=== PATIENT | female | born 1995 | race Caucasian/White ===

== ENCOUNTER 2017-04-18 17:36 | Emergency (ER) | payer OTHER ==
[~2017-04-18] VITALS: Ht 170.2 cm; Wt 55.0 kg
[2017-04-18 17:37] VITALS: BP 105/64; PULSE 100; RESP 20; TEMP 99.2; O2SAT 99
[2017-04-18] MEDS ORDERED: AMOX875T PO (18:47)
--- NOTE | 2017-04-18 18:47 | PD ---
HPI Chief Complaint: Cold / Flu Symptoms Time Seen by Provider: 18:34 Travel History International Travel<30 days: No Contact w/Intl Traveler<30days: No Traveled to known affect area: No History of Present Illness HPI 21-year-old female presents to the emergency Department with 4-5 days of upper respiratory symptoms including headache, congestion, sore throat, postnasal drip, cough, and chest congestion. Patient is a smoker was trying to quit as she is approximately 10 weeks . Patient states the postnasal drip is worse when she lays down at night. She denies chest pain or wheezing. She denies shortness of breath. She has had a fever of up to 100. She denies nausea, vomiting, or abdominal pain. She has no urinary or vaginal symptoms. She has no known drug allergies. Patient is to follow-up with her OB on 03 May. This is her first . [facility] Past Medical History ?: LMP: 02/2017 Social History Alcohol Use: No Tobacco Use: Yes Substance Use: No Allergies-Medications (Allergen,Severity, Reaction): Coded Allergies: No Known Allergies (Unverified , 04/18/17) Review of Systems Except as stated in HPI: all other systems reviewed are Neg General / Constitutional: Positive: Fever, Chills Eyes: No: Visual changes HENT: Positive: Headaches, Sore Throat, Rhinitis, Rhinorrhea, Congestion, No: Vertigo, Lightheadedness, Nosebleed, Neck Stiffness, Neck Pain, Ear Discharge, Earache Cardiovascular: No: Chest Pain or Discomfort Respiratory: Positive: Cough, No: Shortness of Breath, Wheezing, Sneezing Gastrointestinal: No: Nausea, Vomiting, Diarrhea, Abdominal Pain Genitourinary: No: Dysuria Musculoskeletal: No: Pain Skin: No Rash Neurologic: No: Weakness Psychiatric: No: Depression Endocrine: No: Polydipsia Hematologic/Lymphatic: No: Easy Bruising Physical Exam Narrative GENERAL: Patient appears ill but not septic. SKIN: Warm and dry. Normal color. Normal turgor. HEAD: Atraumatic. Normocephalic. Mild bilateral maxillary sinus tenderness with palpation. EYES: Pupils equal and round. No scleral icterus. No injection or drainage. ENT: No nasal bleeding or discharge. Mucous membranes pink and moist. TMs are clear bilaterally. Patient has swollen turbinates and purulent nasal discharge bilaterally. Pharynx is somewhat cobblestoned and erythematous with mild swelling and postnasal drip present. Tonsils are not significant without exudate. Uvula is midline. NECK: Trachea midline. Supple nontender without significant lymphadenopathy. CARDIOVASCULAR: Regular rate and rhythm. RESPIRATORY: No accessory muscle use. Coarse breath sounds to auscultation. Breath sounds equal bilaterally. No wheezes, rales, or rhonchi. GASTROINTESTINAL: Abdomen soft, non-tender, nondistended. Hepatic and splenic margins not palpable. MUSCULOSKELETAL: Extremities without clubbing, cyanosis, or edema. No obvious deformities. NEUROLOGICAL: Awake and alert. No obvious cranial nerve deficits. Motor grossly within normal limits. Five out of 5 muscle strength in the arms and legs. Normal speech. PSYCHIATRIC: Appropriate mood and affect; insight and judgment normal. Data Data Last Documented VS Vital Signs Date Time Temp Pulse Resp B/P Pulse Ox O2 Delivery O2 Flow Rate FiO2 04/18/17 17:37 99.2 100 20 105/64 99 Room Air MDM Medical Decision Making Medical Screen Exam Complete: Yes Emergency Medical Condition: Yes Differential Diagnosis Upper respiratory infection. Sinusitis. Postnasal drip. Bronchitis. Narrative Course Patient is treated with amoxicillin 875 twice a day 10 days. Patient can use plain Robitussin [id number] as discussed. Patient use saline nasal spray promote sinus irrigation. Patient use Tylenol for fever and aches and pains as needed. Patient follow with her primary care physician or return to emergency department as needed. Diagnosis Primary Impression: Sinusitis, acute maxillary Qualified Code: J01.00 - Acute non-recurrent maxillary sinusitis Referrals: [facility] Patient Instructions: General Instructions, Sinusitis (ED) Additional Instructions: Patient is treated with amoxicillin 875 twice a day 10 days. Patient can use plain Robitussin [id number] as discussed. Patient use saline nasal spray promote sinus irrigation. Patient use Tylenol for fever and aches and pains as needed. Patient follow with her primary care physician or return to emergency department as needed. Disposition: 01 DISCHARGE HOME Condition: Stable Shai Armijo Apr 18, 2017 18:47
[2017-05-03] MEDS ORDERED: PREN1CAP7 PO (15:44)
== END 2017-04-18 19:00 | disposition home or self-care (01) ==
LOC: NEPK 17:36
DX: J01.00 Acute maxillary sinusitis, unspecified (principal); Z72.0 Tobacco use
CPT/HCPCS: 99283

== ENCOUNTER → 2017-08-01 | Outpatient (CLI) | payer OTHER ==
[~2017-08-01] MED LIST: PREN1CAP7 PO; SULF1TAB23 PO
== END ==
LOC: HPND 12:55
PROVIDERS: ATTEND Obstetrics & Gynecology
DX: O43.892 Other placental disorders, second trimester (principal); Z36.2 Encounter for other antenatal screening follow-up
CPT/HCPCS: 76811

== ENCOUNTER 2017-08-20 12:04 | Emergency (ER) | payer OTHER ==
[~2017-08-20] VITALS: Ht 170.2 cm; Wt 59.0 kg
--- NOTE | 2017-08-20 13:27 | PD ---
HPI Chief Complaint Decreased movement Date Seen: Aug 20, 2017 Time Seen: 13:22 Travel History International Travel<30 Days: No Contact w/Intl Traveler<30Days: No Known Affected Area: No History of Present Illness HPI Patient is 22-year-old white female at 26-27 weeks who [facility] presents complaining of decreased movement at home. She try to drink some suite liquids and the waffles with sugar in the didn't help the baby move so she came in. Here on OB ED the baby is a reactive strip for 26 weeks no contractions noted, the patient says she's felt the baby move more since she's been here that when she was at home. Denies pain bleeding or leakage of fluid. Weeks Gestation: 26 Para: 0 : 1 History Social History Alcohol Use: No Tobacco Use: No Substance Abuse: No Allergies-Medications (Allergen,Severity, Reaction): Coded Allergies: No Known Allergies (Unverified Allergy, Unknown, 08/18/17) Home Meds Active Scripts Sulfamethoxazole-Trimethoprim (Sulfamethoxazole-Trimethoprim) 800-160 Mg Tab, 1 TAB PO BID for Infection for 7 Days, #14 TAB 0 Refills Prov:Rekha Spear CNM [facility] 07/25/17 W/O Vit A W/ Fe Fumar (Citranatal [place]) 27-1-260 Mg Cap, 1 CAP PO DAILY for Nutritional Supplement, #30 CAP 11 Refills Prov:Rekha Spear CNM [facility] 05/03/17 Review of Systems General / Constitutional: No: Fever, Weight Gain, Chills, Other Eyes: No: Diploplia, Blurred Vision, Visual changes, Pain, Photophobia HENT: No: Headaches, Vertigo, Lightheadedness Cardiovascular: No: Irregular Rhythm, Chest Pain or Discomfort, Palpitations, Tachycardia, Syncope, Varicosities, Edema, Cyanosis Respiratory: No: Cough, Short of Breath, Other Gastrointestinal: No: Nausea, Vomiting, Diarrhea Genitourinary: No: Decreased Urinary Output, Oliguria Musculoskeletal: No: Limited ROM, Weakness, Cramping, Edema, Pain Skin: No Rash, No Itching, No Dryness, No Lumps, No Change in Pigmentation, No Change in Nails, No Alopecia, No Lesions Neurologic: No: Weakness, Dizziness, Syncope, Focal Abnormalities, Coordination Problem, Headache, Slurred Speech, Seizures Psychiatric: No: Depression, Suicidal Ideations, Homicidal Ideation Endocrine: No: Heat Intolerance, Cold Intolerance, Polydipsia, Polyuria, Other Physical Exam Narrative GENERAL: Well-nourished, well-developed patient. SKIN: Warm and dry. HEAD: Normocephalic and atraumatic. EYES: No scleral icterus. No injection or drainage. ENT: No nasal drainage noted. Mucous membranes pink. Airway patent. NECK: Supple, trachea midline. No JVD. CARDIOVASCULAR: Regular rate and rhythm without murmurs, gallops, or rubs. RESPIRATORY: Breath sounds equal bilaterally. No accessory muscle use. BREASTS: Bilateral exam showed no masses , no retractions, no nipple discharge. ABDOMEN/GI: Abdomen soft, non-tender, bowel sounds present, no rebound, no guarding Gravid to [26-] weeks size Fundal Height: [26-] GENITOURINARY: Membranes: [intact ] Uterine Contractions: [none-] FHT's: Category: [1-] Baseline: [-140] Reactive: [-yes for 26 wks] Variability: [mod-] Decels: [-0] EXTREMITIES: No cyanosis or edema. BACK: Nontender without obvious deformity. No CVA tenderness. NEUROLOGICAL: Awake and alert. Motor and sensory grossly within normal limits. Five out of 5 muscle strength in all muscle groups. Normal speech. MDM Interpretation(s) Patient is 22-year-old white female at 26 weeks who presents with decreased movement today. He on OB ED the baby is a reactive heart rate tracing for 26 weeks with good variability. The patient was monitored for over an hour and baby looked good the entire time. She has no contractions. Plan Plan to discharge patient home to observe movement kick counts there. She is to follow-up with her OB provider on Monday which be 48 hours from now Diagnosis Diagnosis: Primary Impression: Decreased movement during in second trimester, antepartum Additional Impression: 26 weeks gestation of Disposition: DISCHARGE HOME Condition: Stable Josr Amado II, MD Aug 20, 2017 13:27
== END 2017-08-20 13:45 | disposition home or self-care (01) ==
LOC: HOBED 12:04
DX: O36.8120 Decreased fetal movements, second trimester, not applicable or unspecified (principal); Z3A.26 26 weeks gestation of pregnancy
CPT/HCPCS: 99284

== ENCOUNTER 2017-09-07 20:06 | Emergency (ER) | payer OTHER ==
[~2017-09-07 20:06] MED LIST changes: -SULF1TAB23 PO
--- NOTE | 2017-09-07 21:24 | PD ---
HPI Chief Complaint Patient noted blood in the toilet when she wiped today, also having right-sided low back pain and flank pain that radiates around to the front Date Seen: Sep 07, 2017 Time Seen: 21:10 Travel History International Travel<30 Days: No Contact w/Intl Traveler<30Days: No Known Affected Area: No History of Present Illness HPI Patient is 22-year-old white female at 29-30 weeks [facility] And presents complaining of possible vaginal bleeding she noticed blood in the toilet when she was at work and wiped. Also developing right-sided low back pain that radiates around to the front. The patient was in [place] for the holidays and had bleeding out there went to the emergency room in OB area there within ultrasound that she says ruled out a previa and they could not find why she was bleeding at that time she did not have the pain that she's having now, she states that she had no more bleeding other than what she saw on the toilet no more blood was seen, none is present now to heart rate tracing is reactive and no contractions same Weeks Gestation: 29 Para: 0 : 1 History Obstetric History Obstetric History First and as mentioned before she was seen in [place] for vaginal bleeding and had ultrasound as a rule out placenta previa but no abnormalities found and they thought it might a been a urinary tract issue Social History Alcohol Use: No Tobacco Use: No Substance Abuse: No Allergies-Medications (Allergen,Severity, Reaction): Coded Allergies: No Known Allergies (Unverified Allergy, Unknown, 08/22/17) Home Meds Active Scripts W/O Vit A W/ Fe Fumar (Citranatal [place]) 27-1-260 Mg Cap, 1 CAP PO DAILY for Nutritional Supplement, #30 CAP 11 Refills Prov:Rekha Spear CNM [facility] 05/03/17 Review of Systems General / Constitutional: No: Fever, Weight Gain, Chills, Other Eyes: No: Diploplia, Blurred Vision, Visual changes, Pain, Photophobia HENT: No: Headaches, Vertigo, Lightheadedness Cardiovascular: No: Irregular Rhythm, Chest Pain or Discomfort, Palpitations, Tachycardia, Syncope, Varicosities, Edema, Cyanosis Respiratory: No: Cough, Short of Breath, Other Gastrointestinal: No: Nausea, Vomiting, Diarrhea Genitourinary: Pelvic Pain, Vaginal Bleeding, No: Decreased Urinary Output, Oliguria Musculoskeletal: No: Limited ROM, Weakness, Cramping, Edema, Pain Skin: No Rash, No Itching, No Dryness, No Lumps, No Change in Pigmentation, No Change in Nails, No Alopecia, No Lesions Neurologic: No: Weakness, Dizziness, Syncope, Focal Abnormalities, Coordination Problem, Headache, Slurred Speech, Seizures Psychiatric: No: Depression, Suicidal Ideations, Homicidal Ideation Endocrine: No: Heat Intolerance, Cold Intolerance, Polydipsia, Polyuria, Other Physical Exam Narrative GENERAL: Well-nourished, well-developed patient. SKIN: Warm and dry. HEAD: Normocephalic and atraumatic. EYES: No scleral icterus. No injection or drainage. ENT: No nasal drainage noted. Mucous membranes pink. Airway patent. NECK: Supple, trachea midline. No JVD. CARDIOVASCULAR: Regular rate and rhythm without murmurs, gallops, or rubs. RESPIRATORY: Breath sounds equal bilaterally. No accessory muscle use. BREASTS: Bilateral exam showed no masses , no retractions, no nipple discharge. ABDOMEN/GI: Abdomen soft, non-tender, bowel sounds present, no rebound, no guarding Gravid to [-29] weeks size Fundal Height: [29-] GENITOURINARY: External Genitalia: intact and normal in appearance Speculum exam done--no blood in the vagina to some white discharge present cervix appears normal does not appear infected's fairly large cervical diameter however cervix is closed palpation and visualization no blood and no bleeding source seen Cervix: [Closed-] Dilatation: [-Closed] Effacement: [-] Thick Station: [-3] Membranes: [intact ] Uterine Contractions: [none-] FHT's: Category: [-1] Baseline: [-133] Reactive: [R-] Variability: [-mod] Decels: [none-] EXTREMITIES: No cyanosis or edema. BACK: Nontender without obvious deformity. Mild right-sided CVA tenderness. none on Left NEUROLOGICAL: Awake and alert. Motor and sensory grossly within normal limits. Five out of 5 muscle strength in all muscle groups. Normal speech. Data Data Labs Urine dip on OB ED shows moderate blood no infection MDM Interpretation(s) 22-year-old white female at 29-30 weeks presents with seeing blood in the toilet this evening having right low back pain that radiates around to front. heart rate tracing is reactive and she's not maile, cervix was visualized with speculum there is no blood in the vagina no source of bleeding there cervix appears closed normal and noninfective and there is even white discharge there that he would not see if the patient been bleeding significantly. The urine dipstick was showed moderate blood with symptoms of right flank pain radiating around to front and blood in the urine is quite likely is a small kidney stone trying to pass Plan Plan for patient to be at home of drinking a lot of fluids and water to try and the flush the stone, possible to help hydration, she is to use Tylenol liberally , heating pad or hot bath for symptom relief. And she is to return for worsening symptoms or fever. Also be at bedrest as much as possible over this weekend and the given a work note for 3 days. Diagnosis Diagnosis: Primary Impression: Renal stone Additional Impression: Spotting affecting in third trimester Disposition: 01 DISCHARGE HOME Condition: Stable Josr Amado II, MD Sep 07, 2017 21:24
[2017-09-07 22:22] LABS: AMORPHOUS SEDIMENT, URINE RARE; BACTERIA, URINE RARE /hpf; BILIRUBIN, URINE NEG (NEG); BLOOD, URINE SMALL (NEG); GLUCOSE,URINE NEG (NEG); KETONE, URINE NEG (NEG); MUCUS URINE FEW /lpf (OCC); NITRITE,URINE NEG (NEG); SQUAMOUS EPITHELIAL CELL URINE 10 /hpf (0-5); TRANSITIONAL EPI CELLS, URINE 1 /hpf; URINE COLOR YELLOW (YELLW/STRAW); URINE LEUKOCYTE ESTERASE LARGE (NEG)
== END 2017-09-07 21:26 | disposition home or self-care (01) ==
LOC: HOBED 20:06
DX: O26.853 Spotting complicating pregnancy, third trimester (principal); N20.0 Calculus of kidney; Z3A.29 29 weeks gestation of pregnancy
CPT/HCPCS: 59025; 81001

== ENCOUNTER 2017-10-26 17:05 | Emergency (ER) | payer OTHER ==
--- NOTE | 2017-10-26 18:09 | PD ---
HPI Chief Complaint Patient describes a trickle of fluid per vagina today, no large gush or stream of fluid. Date Seen: Oct 26, 2017 Time Seen: 18:00 Travel History International Travel<30 Days: No Contact w/Intl Traveler<30Days: No Known Affected Area: No History of Present Illness HPI 22-year-old white female at 36 weeks [facility] and complains today of a trickle of fluid per vagina just keeps on coming out no large streamer gush of fluid. No bleeding. No other complaints of pain. heart tones are reactive and that she is maile irregularly. Her amnisure is negative Weeks Gestation: 36 Para: 0 : 1 History Social History Alcohol Use: No Tobacco Use: No Substance Abuse: No Allergies-Medications (Allergen,Severity, Reaction): Coded Allergies: No Known Allergies (Unverified Allergy, Unknown, 10/02/17) Home Meds Active Scripts W/O Vit A W/ Fe Fumar (Citranatal [place]) 27-1-260 Mg Cap, 1 CAP PO DAILY for Nutritional Supplement, #30 CAP 11 Refills Prov:Rekha Spear CNM [facility] 05/03/17 Review of Systems General / Constitutional: No: Fever, Weight Gain, Chills, Other Eyes: No: Diploplia, Blurred Vision, Visual changes, Pain, Photophobia HENT: No: Headaches, Vertigo, Lightheadedness Cardiovascular: No: Irregular Rhythm, Chest Pain or Discomfort, Palpitations, Tachycardia, Syncope, Varicosities, Edema, Cyanosis Respiratory: No: Cough, Short of Breath, Other Gastrointestinal: No: Nausea, Vomiting, Diarrhea Genitourinary: No: Decreased Urinary Output, Oliguria Musculoskeletal: No: Limited ROM, Weakness, Cramping, Edema, Pain Skin: No Rash, No Itching, No Dryness, No Lumps, No Change in Pigmentation, No Change in Nails, No Alopecia, No Lesions Neurologic: No: Weakness, Dizziness, Syncope, Focal Abnormalities, Coordination Problem, Headache, Slurred Speech, Seizures Psychiatric: No: Depression, Suicidal Ideations, Homicidal Ideation Endocrine: No: Heat Intolerance, Cold Intolerance, Polydipsia, Polyuria, Other Physical Exam Narrative GENERAL: Well-nourished, well-developed patient. SKIN: Warm and dry. HEAD: Normocephalic and atraumatic. EYES: No scleral icterus. No injection or drainage. ENT: No nasal drainage noted. Mucous membranes pink. Airway patent. NECK: Supple, trachea midline. No JVD. CARDIOVASCULAR: Regular rate and rhythm without murmurs, gallops, or rubs. RESPIRATORY: Breath sounds equal bilaterally. No accessory muscle use. BREASTS: Bilateral exam showed no masses , no retractions, no nipple discharge. ABDOMEN/GI: Abdomen soft, non-tender, bowel sounds present, no rebound, no guarding Gravid to [-36] weeks size Fundal Height: [36-] GENITOURINARY: External Genitalia: intact and normal in appearance BUS glands: [-] Cervix: [-post] Dilatation: [-0] Effacement: [-thick] Station: [-3] Presentation: [vtx-] Membranes: [intact amnisure neg] Uterine Contractions: [q 3 min-] FHT's: Category: [1-] Baseline: [133-] Reactive: [-R] Variability: [mod-] Decels: [-none] EXTREMITIES: No cyanosis or edema. BACK: Nontender without obvious deformity. No CVA tenderness. NEUROLOGICAL: Awake and alert. Motor and sensory grossly within normal limits. Five out of 5 muscle strength in all muscle groups. Normal speech. Data Data Labs amnisure negative MDM Interpretation(s) Patient is a 22-year-old white female G one P0 at 36 weeks who presents with possibly leaking of fluid that she describes it as a "trickle", denies bleeding , pain. She is maile irregularly cervix is closed long and high. heart tones are reactive. amnisure is negative Plan Plan discharge the patient home to observation return for increasing leaking bleeding or pain. Diagnosis Diagnosis: Primary Impression: No leakage of amniotic fluid into vagina Additional Impression: 36 weeks gestation of Disposition: DISCHARGE HOME Condition: Stable Josr Amado II, MD Oct 26, 2017 18:09
== END 2017-10-26 18:31 | disposition home or self-care (01) ==
LOC: HOBED 17:05
DX: O26.893 Other specified pregnancy related conditions, third trimester (principal); Z3A.36 36 weeks gestation of pregnancy
CPT/HCPCS: 59025; 84112

== ENCOUNTER 2017-11-02 08:20 | Emergency (ER) | payer OTHER ==
--- NOTE | 2017-11-02 09:10 | PD ---
HPI Travel History International Travel<30 Days: No Contact w/Intl Traveler<30Days: No Known Affected Area: No History of Present Illness HPI Patient is a 22-year-old at 37/3 presents today for contractions. Patient states earlier in the day she felt a cramping sensation in her lower abdomen. The time between cramps was approximately 1-3 minutes, has been increasing in strength. States she has only had white normal discharge recently. Denies large gushes of fluid, malodorous or different color discharges , bloody discharge. Denies dysuria, hematuria, acute frequency, change in color or smell. No nausea, vomiting, fevers, chills. Denies headache, changes in vision, chest pain, shortness of breath. Reports fetus is moving normally. No other complaints today. Weeks Gestation: 37 Para: 0 : 1 Miscarriage: 0 : 0 History Past Medical History Medical History: Denies Significant Hx Past Surgical History Surgical History: No Previous Surgery Family History Family History: Negative Social History Alcohol Use: No Tobacco Use: Yes (09/07 PPD for entire ) Substance Abuse: No Allergies-Medications (Allergen,Severity, Reaction): Coded Allergies: No Known Allergies (Unverified Allergy, Unknown, 11/02/17) Home Meds Active Scripts W/O Vit A W/ Fe Fumar (Citranatal [place]) 27-1-260 Mg Cap, 1 CAP PO DAILY for Nutritional Supplement, #30 CAP 11 Refills Prov:Rekha Spear CNM [facility] 05/03/17 Review of Systems General / Constitutional: No: Fever, Chills Eyes: No: Diploplia, Blurred Vision, Visual changes, Pain HENT: No: Headaches, Vertigo Cardiovascular: No: Chest Pain or Discomfort Respiratory: No: Cough, Short of Breath, Wheezing Gastrointestinal: No: Nausea, Vomiting, Diarrhea, Hematemesis, Hematochezia, Constipation Genitourinary: No: Urgency, Frequency, Dysuria, Hematuria Musculoskeletal: No: Limited ROM, Weakness Skin: No Rash, No Itching, No Dryness Neurologic: No: Weakness, Dizziness Psychiatric: No: Anxiety, Mood Disorder Endocrine: No: Polydipsia, Polyuria Hematologic/Lymphatic: No Easy Bruising, No Lymph Node Enlargement Physical Exam Narrative GENERAL: Well-nourished, well-developed patient. SKIN: Warm and dry. HEAD: Normocephalic and atraumatic. EYES: No scleral icterus. No injection or drainage. ENT: No nasal drainage noted. Mucous membranes pink. Airway patent. NECK: Supple, trachea midline. No JVD. CARDIOVASCULAR: Regular rate and rhythm without murmurs, gallops, or rubs. RESPIRATORY: Breath sounds equal bilaterally. No accessory muscle use. ABDOMEN/GI: Abdomen soft, non-tender, bowel sounds present, no rebound, no guarding GENITOURINARY: External Genitalia: intact and normal in appearance Cervix: anterior Dilatation: 1 Effacement: 80 Station: -2 Presentation: vertex Membranes: intact Uterine Contractions: 3-5 minutes FHT's: Category: 2 Baseline: 145 Reactive: yes Variability: moderate Decels: variable EXTREMITIES: No cyanosis or edema. BACK: Nontender without obvious deformity. No CVA tenderness. NEUROLOGICAL: Awake and alert. Motor and sensory grossly within normal limits. Five out of 5 muscle strength in all muscle groups. Normal speech. Data Data Vital Signs Reviewed: Yes MDM Plan Patient is a 22-year-old at 37/3 presented today for contractions. Denied discharge of fluid. No dilation of cervix, observed over one hour. No other complaints. -FHT category 2, corrected to category 1, reassuring -Continue po hydration -Educated on signs/symptoms of , will return if present d/w Dr. Javed Diagnosis Diagnosis: Primary Impression: Uterine contractions during Additional Impression: 37 weeks gestation of Disposition: 01 DISCHARGE HOME Patient Instructions: General Instructions, Early Labor Signs (ED) Barber Villegas MD R1 Nov 02, 2017 09:10
== END 2017-11-02 11:06 | disposition home or self-care (01) ==
LOC: HOBED 08:20
DX: O47.1 False labor at or after 37 completed weeks of gestation (principal); O99.333 Smoking (tobacco) complicating pregnancy, third trimester; F17.200 Nicotine dependence, unspecified, uncomplicated; Z3A.37 37 weeks gestation of pregnancy
CPT/HCPCS: 59025

== ENCOUNTER 2017-11-15 18:49 | Inpatient (IN) | payer OTHER ==
[~2017-11-15] VITALS: Ht 170.2 cm; Wt 67.0 kg
[2017-11-15] VITALS (9 sets, daily range): BP systolic 111–125; BP diastolic 63–74; PULSE 76–93; RESP 16–18; TEMP 98.1–98.3
[2017-11-15] MEDS ORDERED: LACTATED RINGER'S 1000 ML INJ 1,000 ML IV PRN (19:46)
--- NOTE | 2017-11-15 19:50 | HHI.HP ---
HPI Chief Complaint Complains of her water breaking and labor pain Date Seen: Nov 15, 2017 Time Seen: 19:47 Travel History International Travel<30 Days: No Contact w/Intl Traveler<30Days: No Known Affected Area: No History of Present Illness HPI Patient is 22-year-old white female at 39 weeks [facility] presents complaining of water breaking. She has a positive amnisure, reactive heart rate tracing, maile every 3 minutes Weeks Gestation: 39 Para: 0 : 1 History Social History Alcohol Use: No Tobacco Use: No Substance Abuse: No Allergies-Medications (Allergen,Severity, Reaction): Coded Allergies: No Known Allergies (Unverified Allergy, Unknown, 11/02/17) Home Meds Active Scripts W/O Vit A W/ Fe Fumar (Citranatal [place]) 27-1-260 Mg Cap, 1 CAP PO DAILY for Nutritional Supplement, #30 CAP 11 Refills Prov:Rekha Spear CNM [facility] 05/03/17 Review of Systems General / Constitutional: No: Fever, Weight Gain, Chills, Other Eyes: No: Diploplia, Blurred Vision, Visual changes, Pain, Photophobia HENT: No: Headaches, Vertigo, Lightheadedness Cardiovascular: No: Irregular Rhythm, Chest Pain or Discomfort, Palpitations, Tachycardia, Syncope, Varicosities, Edema, Cyanosis Respiratory: No: Cough, Short of Breath, Other Gastrointestinal: No: Nausea, Vomiting, Diarrhea Genitourinary: No: Decreased Urinary Output, Oliguria Musculoskeletal: No: Limited ROM, Weakness, Cramping, Edema, Pain Skin: No Rash, No Itching, No Dryness, No Lumps, No Change in Pigmentation, No Change in Nails, No Alopecia, No Lesions Neurologic: No: Weakness, Dizziness, Syncope, Focal Abnormalities, Coordination Problem, Headache, Slurred Speech, Seizures Psychiatric: No: Depression, Suicidal Ideations, Homicidal Ideation Endocrine: No: Heat Intolerance, Cold Intolerance, Polydipsia, Polyuria, Other Physical Exam Narrative GENERAL: Well-nourished, well-developed patient. SKIN: Warm and dry. HEAD: Normocephalic and atraumatic. EYES: No scleral icterus. No injection or drainage. ENT: No nasal drainage noted. Mucous membranes pink. Airway patent. NECK: Supple, trachea midline. No JVD. CARDIOVASCULAR: Regular rate and rhythm without murmurs, gallops, or rubs. RESPIRATORY: Breath sounds equal bilaterally. No accessory muscle use. BREASTS: Bilateral exam showed no masses , no retractions, no nipple discharge. ABDOMEN/GI: Abdomen soft, non-tender, bowel sounds present, no rebound, no guarding Gravid to [-39] weeks size Fundal Height: [-39] GENITOURINARY: External Genitalia: intact and normal in appearance BUS glands: [-] Cervix: [ant-] Dilatation: [3-] Effacement: [-60] Station: [-2] Presentation: [vtx-] Membranes: ruptured] Uterine Contractions: [-q 3 min] FHT's: Category: [-1] Baseline: [-133] Reactive: [-R] Variability: [mod-] Decels: [-none] EXTREMITIES: No cyanosis or edema. BACK: Nontender without obvious deformity. No CVA tenderness. NEUROLOGICAL: Awake and alert. Motor and sensory grossly within normal limits. Five out of 5 muscle strength in all muscle groups. Normal speech. Caprini VTE Risk Assessment Caprini VTE Risk Assessment: No/Low Risk (score <= 1) Caprini Risk Assessment Model Point Value = 1 Point Value = 2 Point Value = 3 Point Value = 5 Age 41-60 Minor surgery BMI > 25 kg/m2 Swollen legs Varicose veins or History of unexplained or recurrent spontaneous Oral contraceptives or hormone replacement Sepsis (< 1 month) Serious lung disease, including pneumonia (< 1 month) Abnormal pulmonary function Acute myocardial infarction Congestive heart failure (< 1 month) History of inflammatory bowel disease Medical patient at bed rest Age 61-74 Arthroscopic surgery Major open surgery (> 45 min) Laparoscopic surgery (> 45 min) Malignancy Confined to bed (> 72 hours) Immobilizing plaster cast Central venous access Age >= 75 History of VTE Family history of VTE Factor V Leiden Prothrombin [id number] Lupus anticoagulant Anticardiolipin antibodies Elevated serum homocysteine Heparin-induced thrombocytopenia Other congenital or acquired thrombophilia Stroke (< 1 month) Elective arthroplasty Hip, pelvis, or leg fracture Acute spinal cord injury (< 1 month) Prophylaxis Regimen Total Risk Factor Score Risk Level Prophylaxis Regimen 0-1 Low Early ambulation 2 Moderate Order ONE of the following: *Sequential Compression Device (SCD) *Heparin 5000 units SQ BID 3-4 Higher Order ONE of the following medications: *Heparin 5000 units SQ TID *Enoxaparin/Lovenox 40 mg SQ daily (WT < 150 kg, CrCl > 30 mL/min) *Enoxaparin/Lovenox 30 mg SQ daily (WT < 150 kg, CrCl > 10-29 mL/min) *Enoxaparin/Lovenox 30 mg SQ BID (WT < 150 kg, CrCl > 30 mL/min) AND/OR *Sequential Compression Device (SCD) 5 or more Highest Order ONE of the following medications: *Heparin 5000 units SQ TID (Preferred with Epidurals) *Enoxaparin/Lovenox 40 mg SQ daily (WT < 150 kg, CrCl > 30 mL/min) *Enoxaparin/Lovenox 30 mg SQ daily (WT < 150 kg, CrCl > 10-29 mL/min) *Enoxaparin/Lovenox 30 mg SQ BID (WT < 150 kg, CrCl > 30 mL/min) AND *Sequential Compression Device (SCD) Data Data Orders Orders Ob (2e) Additional Admit Info (11/15/17 19:25) Admit To Inpatient (11/15/17 ) Vital Signs (Adult) .Per protocol (11/15/17 19:46) Heart (11/15/17 19:46) Amnioinfusion (11/15/17 19:46) Urinary Catheter Management .ONCE (11/15/17 19:46) Diet Npo (11/16/17 Breakfast) Lactated Ringer's 1000 Ml Inj (Lr 1000 M (11/15/17 19:46) Lactated Ringer's 1000 Ml Inj (Lr 1000 M (11/15/17 19:46) Sodium Chlorid 0.9% 500 Ml Inj (Ns 500 M (11/15/17 20:00) Sodium Chlor 0.9% 1000 Ml Inj (Ns 1000 M (11/15/17 20:06) Lidocaine 1% Inj (50 Ml) (Xylocaine 1% I (11/15/17 20:00) Citric Acid-Sodium Citrate Liq (Bicitra (11/15/17 20:00) Fentanyl Inj (Fentanyl Inj) (11/15/17 20:00) Fentanyl Inj (Fentanyl Inj) (11/15/17 20:00) Complete Blood Count With Diff (11/15/17 19:46) Hold Clot (11/15/17 19:46) Abo/Rh Blood Type (11/15/17 19:46) Urinalysis - C+S If Indicated (11/15/17 19:46) Drug Screen, Random Urine (11/15/17 19:46) Ob/Psych Drug Screen, Urine (11/15/17 19:46) Resp Oxygen Non Rebreathe Mask (11/15/17 ) ^ Epidural / Intrathecal Infus (11/15/17 19:46) Oxytocin 30 Units-500ml Premix (Pitocin (11/15/17 20:00) Lidocaine 1% Inj (50 Ml) (Xylocaine 1% I (11/15/17 20:00) Light Mineral Oil (Muri-Lube Oil) (11/15/17 20:00) Specimen To Be Collected PRN (11/15/17 19:46) Specimen To Be Collected PRN (11/15/17 19:46) Group B Strep: Negative Labs Positive amnisure Assessment/Plan Assessment and Plan Impression--39 week intrauterine with spontaneous rupture membranes and labor Plan--managed labor and augment as needed, anticipate vaginal delivery Josr Amado II, MD Nov 15, 2017 19:50
[2017-11-15] MEDS ORDERED: MINERAL OIL 10 ML VIAL TOPICAL PRN (20:00)
[2017-11-15] MEDS ORDERED: OXYTOCIN 30 UNITS-500ML PREMIX 500 ML IV ONE (20:00)
[2017-11-15] MEDS ORDERED: LIDOCAINE HCL 1% 50 ML VIAL I-DERMAL PRN (20:00)
[2017-11-15] MEDS ORDERED: SODIUM CHLORID 0.9% 500 ML INJ 500 ML IV PRN (20:00)
[2017-11-15] MEDS ORDERED: CITRIC ACID-SODIUM CITRATE LIQ 30 ML UDC PO SCH (20:00)
[2017-11-15] MEDS ORDERED: LIDOCAINE HCL 1% 50 ML VIAL INFIL PRN (20:00)
[2017-11-15] MEDS: LACTATED RINGER'S 1000 ML INJ 1,000 ML IV SCH (20:03)
[2017-11-15] MEDS ORDERED: SODIUM CHLOR 0.9% 1000 ML INJ 1,000 ML IV PRN (20:06)
[2017-11-15 20:14] LABS: BASOPHIL % 0.2 % (0.0-2.0); EOSINOPHIL # 0.2 TH/MM3 (0-0.4); EOSINOPHIL % 0.9 % (0.0-4.0); HEMATOCRIT 37.7 % (35.0-46.0); HEMOGLOBIN 13.1 GM/DL (11.6-15.3); LYMPH % 15.5 % (9.0-44.0); LYMPHOCYTE # 2.8 TH/MM3 (1.0-4.8); MEAN CELL VOLUME 91.2 FL (80.0-100.0); MEAN CORPUSCULAR HEMOGLOBIN 31.8 PG (27.0-34.0); MEAN CORPUSCULAR HGB CONC 34.9 % (32.0-36.0); MEAN PLATELET VOLUME 8.8 FL (7.0-11.0); MONOCYTE # 1.1 TH/MM3 (0-0.9); NEUT % 77.4 % (16.0-70.0); PLATELET COUNT 242 TH/MM3 (150-450); RED BLOOD COUNT 4.13 MIL/MM3 (4.00-5.30); RED CELL DISTRIBUTION WIDTH 12.4 % (11.6-17.2); WHITE BLOOD COUNT 18.1 TH/MM3 (4.0-11.0)
[2017-11-15 20:40] LABS: AMORPHOUS SEDIMENT, URINE RARE; BACTERIA, URINE MOD /hpf; BILIRUBIN, URINE NEG (NEG); BLOOD, URINE SMALL (NEG); GLUCOSE,URINE NEG (NEG); KETONE, URINE NEG (NEG); MUCUS URINE FEW /lpf (OCC); NITRITE,URINE NEG (NEG); SQUAMOUS EPITHELIAL CELL URINE 2 /hpf (0-5); URINE COLOR YELLOW (YELLW/STRAW); URINE LEUKOCYTE ESTERASE SMALL (NEG)
[2017-11-15] MEDS ORDERED: fentaNYL 2MCG-BUPIV 0.125% INJ 100 ML ONE (23:28)
[2017-11-15] MEDS ORDERED: ePHEDrine/NS 25 MG/5 ML SYRINGE ONE (23:29)
[2017-11-16] VITALS (43 sets, daily range): BP systolic 82–128; BP diastolic 38–106; PULSE 60–119; RESP 16–18; TEMP 98–99.5; O2SAT 100
[2017-11-16] MEDS ORDERED: DO NOT ADMINISTER ANTICOAGULANTS PRN
[2017-11-16] MEDS ORDERED: NO SYSTEM NARCOTICS PRN
[2017-11-16] MEDS ORDERED: fentaNYL 2MCG-BUPIV 0.125% 100 ML EPIDURAL SCH
[2017-11-16] MEDS: LACTATED RINGER'S 1000 ML INJ 1,000 ML IV SCH (01:14)
[2017-11-16] MEDS ORDERED: ePHEDrine/NS 25 MG/5 ML SYRINGE IV PUSH PRN (01:15)
[2017-11-16] MEDS ORDERED: OXYTOCIN 30 UNITS/NS 500ML PREMIX IV PRN (02:00)
[2017-11-16] MEDS ORDERED: TERBUTALINE INJ 1 MG/ML AMP ONE (04:41)
[2017-11-16] MEDS ORDERED: TERBUTALINE INJ 1 MG/ML AMP SQ SCH (04:45)
--- NOTE | 2017-11-16 06:14 | PD.OB.DELI ---
Weeks gestation: 39 Anesthesia: Epidural Vaginal Delivery: Vacuum Presentation: Occiput anterior Nuchal Cord: x1 Delayed cord clamping (45 sec): Yes Infant: Male Delivery date: Nov 16, 2017 Delivery time: 05:27 One Minute : 8 Five Minute : 9 Weight: 2785 Placenta: Spontaneous delivery Laceration: Episiotomy, 2 deg Repair: Chromic interrupted, Vicryl running Additional Information Vacuum was used to assist delivery after midline episiotomy. Infant's head was OA at +2 station. 1 vacuum pop off prior to successful vacuum assisted delivery. had 1 loose nuchal cord which was reduced. Placenta was delivery spontaneously. Patient found to have 2nd degree laceration. A Vicryl figure 8 was performed on the sphincter capsule Subsequently, running 2-0 Vicryl repair was used to repair a 2nd degree midline laceration. Hemostasis achieved. Delivery and repair supervised/assisted by Dr. Aneudy Robles,[facility] MD, R3 Nov 16, 2017 06:13
[2017-11-16] MEDS ORDERED: ALUMINUM/MAGNESIUM/SIMETH 30 ML CUP PO PRN (06:15)
[2017-11-16] MEDS ORDERED: SODIUM CHLORIDE 0.9% FLUSH 10 ML FLUSH IV FLUSH PRN (06:15)
[2017-11-16] MEDS ORDERED: ZOLPIDEM TARTRATE 5 MG TAB PO PRN (06:15)
[2017-11-16] MEDS ORDERED: ONDANSETRON ODT 4 MG TAB PO PRN (06:15)
[2017-11-16] MEDS ORDERED: BENZOCAINE 20% TOPICAL SPRAY 60 ML CAN TOPICAL PRN (06:15)
[2017-11-16] MEDS ORDERED: OXYTOCIN 30 UNITS-500ML PREMIX 500 ML IV SCH (06:15)
[2017-11-16] MEDS ORDERED: DOCUSATE SODIUM 50 MG/SENNA 8.6 MG TAB PO PRN (06:15)
[2017-11-16] MEDS ORDERED: WITCH HAZEL 50%/GLYCERIN 12.5% 40 PAD JAR TOPICAL PRN (06:15)
[2017-11-16] MEDS ORDERED: ACETAMINOPHEN 325 MG TAB PO PRN (06:15)
[2017-11-16] MEDS: IBUPROFEN 800 MG TAB PO PRN ×2 (06:24→15:14)
[2017-11-16] MEDS: oxyCODONE/ACETAMINOPHEN 5 MG/325 MG TAB PO PRN ×5 (06:25→22:08)
[2017-11-16] MEDS ORDERED: TERBUTALINE INJ 1 MG/ML AMP SQ ONE (06:30)
[2017-11-16] MEDS ORDERED: SODIUM CHLORIDE 0.9% FLUSH 10 ML FLUSH IV FLUSH SCH (09:00)
[2017-11-16] MEDS ORDERED: MEASLES, MUMPS, RUBELLA VACCINE 0.5 ML VIAL SQ ONE (16:00)
[2017-11-16] MEDS ORDERED: DIPHTH/TETANUS/ACEL PERTUSSIS (BOOSTER) 0.5 ML VIAL/PFS IM ONE (16:00)
[2017-11-17] MEDS: IBUPROFEN 800 MG TAB PO PRN ×2 (00:29→09:13)
[2017-11-17] MEDS: oxyCODONE/ACETAMINOPHEN 5 MG/325 MG TAB PO PRN ×2 (02:08→09:12)
--- NOTE | 2017-11-17 07:15 | HHI.OB ---
Subjective Post Day: 1 Remarks day # 1. AFVSS overnight. Pain well-controlled. Decreased lochia. Denies dysuria. No breast tenderness. She is feeding the baby via breast/ bottle. Appetite good. No nausea or vomiting. + flatus. no bowel movement. Ambulating well. Denies calf pain, shortness of breath, or cough. Otherwise, she is doing well this morning and has no other complaints. Objective Vitals/I&O Vital Signs Date Time Temp Pulse Resp B/P (MAP) Pulse Ox O2 Delivery O2 Flow Rate FiO2 11/16/17 20:00 99.5 60 18 104/62 (76) 11/16/17 07:55 108/67 (81) 11/16/17 07:55 98.0 84 18 11/16/17 07:35 18 11/16/17 07:35 18 11/16/17 07:35 18 Objective Remarks GENERAL: Well-nourished, well-developed patient. CARDIOVASCULAR: Regular rate and rhythm without murmurs, gallops, or rubs. RESPIRATORY: Breath sounds equal bilaterally. No accessory muscle use. ABDOMEN/GI: Abdomen soft, non-tender. Fundus: Firm, non-tender at umbilicus. GENITOURINARY: Light to moderate bleeding. EXTREMITIES: No cyanosis or edema, non-tender, without signs of DVT. Medications and IVs Current Medications Medications (Trade) Dose Ordered Sig/Lisa Route Start Time Stop Time Status Last Admin Fentanyl/ Bupivacaine HCl 100 ml @ 12 mls/hr TITRATE EPIDURAL 11/16/17 00:00 11/16/17 06:33 Oxytocin 500 ml @ 0 mls/hr TITRATE PRN IV 11/16/17 02:00 11/16/17 02:14 (NS Flush) 2 ml BID IV FLUSH 11/16/17 09:00 11/16/17 10:47 (NS Flush) 2 ml UNSCH PRN IV FLUSH 11/16/17 06:15 (Tylenol) 650 mg Q4H PRN PO 11/16/17 06:15 (Motrin) 800 mg Q8H PRN PO 11/16/17 06:15 11/17/17 00:29 (Percocet 5-325 Mg) 1 tab Q4H PRN PO 11/16/17 06:15 11/16/17 22:08 (Percocet 5-325 Mg) 2 tab Q4H PRN PO 11/16/17 06:15 11/17/17 02:08 (Americaine 20% Top Spr) 1 spray Q4H PRN TOPICAL 11/16/17 06:15 11/16/17 10:47 (Tucks Pads) 1 applic QID PRN TOPICAL 11/16/17 06:15 11/16/17 10:47 (Simran-Colace) 2 tab Q12H PRN PO 11/16/17 06:15 (Ambien) 5 mg HS PRN PO 11/16/17 06:15 (Mag-Al Plus Susp Liq) 15 ml Q8H PRN PO 11/16/17 06:15 (Zofran Odt) 4 mg Q6H PRN PO 11/16/17 06:15 Assessment/Plan Assessment and Plan 22 y/o who is PPD# 1 s/p . -Continue routine care. -Percocet and Motrin PRN pain. -Encouraged OOB. Advised pelvic rest for 6 wks. -Will need a f/u appt. within 6 wks. -Re: ctrl, she would like an IUD. -D/c likely tomorrow. [facility] attending Joyce Todd MD R1 Nov 17, 2017 07:15
[2017-11-17 08:00] VITALS: BP 90/60; PULSE 78; RESP 18; TEMP 97.8
[2017-11-17] MEDS ORDERED: MEASLES, MUMPS, RUBELLA VACCINE 0.5 ML VIAL SQ ONE (11:30)
[2017-11-17] MEDS ORDERED: IBUP1TAB7 PO (12:31)
--- NOTE | 2017-11-17 12:32 | HHI.DCPOC ---
Discharge Care Plan Diagnosis: (1) Normal vaginal delivery Report Symptoms to Your Doctor -Temperature above 100.5 degrees -Redness, of incision or excessive or foul smelling drainage -Unusual pain or calf pain -Increased vaginal bleeding -Painful or difficulty urinating -Feelings of extreme sadness or anxiety after 2 weeks Goals to Promote Your Health * To prevent worsening of your condition and complications * To maintain your health at the optimal level Directions to Meet Your Goals Take your medications as prescribed Follow your dietary instruction Follow activity as directed Ensure plenty of rest for recovery Drink fluids for hydration Keep your appointments as scheduled Take your immunizations and boosters as scheduled If your symptoms worsen call your PCP, if no PCP go to Urgent Care Center or Emergency Room Smoking is Dangerous to Your Health. Avoid second hand smoke Call the 24-hour crisis hotline for domestic abuse at Joyce Todd MD R1 Nov 17, 2017 12:32
== END 2017-11-17 13:43 | disposition home or self-care (01) | DRG 775 ==
LOC: HOBED 18:49 → H2EB 19:34 → H1EA 11-16 07:34
PROVIDERS: ADMIT Obstetrics & Gynecology Maternal & Fetal Medicine; ATTEND Obstetrics & Gynecology Maternal & Fetal Medicine
PROC: 00HU33Z Insertion of Infusion Device into Spinal Canal, Percutaneous Approach (ICD-10-PCS; 2017-11-15)
PROC: 3E0R3BZ Introduction of Anesthetic Agent into Spinal Canal, Percutaneous Approach (ICD-10-PCS; 2017-11-15)
PROC: 10D07Z6 Extraction of Products of Conception, Vacuum, Via Natural or Artificial Opening (ICD-10-PCS; principal; 2017-11-16)
PROC: 0KQM0ZZ Repair Perineum Muscle, Open Approach (ICD-10-PCS; 2017-11-16)
PROC: 10E0XZZ Delivery of Products of Conception, External Approach (ICD-10-PCS; 2017-11-16)
PROC: 0W8NXZZ Division of Female Perineum, External Approach (ICD-10-PCS; 2017-11-16)
DX: O70.1 Second degree perineal laceration during delivery (principal); Z37.0 Single live birth; O69.81X0 Labor and delivery complicated by cord around neck, without compression, not applicable or unspecified; Z23 Encounter for immunization; Z3A.39 39 weeks gestation of pregnancy
CPT/HCPCS: 59025; 80307; 81001; 84112; 85025; 85461; 86850; 86900; 86901; 87086; 90384; 90707; G0481; J2590; J2790; J3105; J7120

== ENCOUNTER → 2018-02-06 | Day surgery (SDC) | payer OTHER ==
--- NOTE | 2018-02-05 09:38 | MH ---
cc: George Kemp MD DATE OF ADMISSION: 02/06/2018 REASON FOR ADMISSION: This patient is a 22-year-old white female. She is a 1, para 2, who is being admitted to [facility] for treatment of high-grade squamous intraepithelial lesion. HISTORY OF PRESENT ILLNESS: The patient is well known to our practice. She was recently seen for a Pap, which was reported out as could not exclude high grade dysplasia. Discussed the different modes of therapy and we discussed loop electrical excision. The risks of the procedure were discussed at length. SOCIAL HISTORY: The patient is a smoker and has been smoking for approximately 10 years. PAST SURGICAL HISTORY: Negative. PAST MEDICAL HISTORY: Also negative. ALLERGIES: SHE HAS NO KNOWN ALLERGIES TO MEDICATION. REVIEW OF SYSTEMS: Essentially noncontributory. PHYSICAL EXAMINATION: GENERAL: The patient was seen well-developed, well-nourished, no acute distress. VITAL SIGNS: Blood pressure was 96/68, pulse was 70, respirations were 12. HEENT: Negative. CHEST: Clear to auscultation. CARDIOVASCULAR: Revealed a regular rate. ABDOMEN: Soft. Bowel sounds are positive. PELVIC: On examination, the uterus is normal in size. There are no adnexal masses palpable. External external genitalia was within normal limits. EXTREMITIES: Reveal no cyanosis, clubbing, or edema. NEUROPSYCHIATRIC: Patient is oriented x 3. She had no gross neurocranial deficit. IMPRESSION ON ADMISSION: High grade squamous intraepithelial lesion. PLAN: Loop electrical excision procedure. MD AAMIR MalikG/KD , 09:27 AM , 09:37 AM
[~2018-02-06] MED LIST changes: +IBUP1TAB7 PO; +KETOROLAC TROMETHAMINE 30 MG/ML (IVP) VIAL IV PUSH ONE; +LACTATED RINGER'S 1000 ML INJ 1,000 ML ONE; +MIDAZOLAM HCL 2 MG/2 ML VIAL ONE; +ONDANSETRON HCL 4 MG/2 ML VIAL IV PUSH ONE; +ONDANSETRON HCL 4 MG/2 ML VIAL IV PUSH PRN; -PREN1CAP7 PO; +PROPOFOL 200 MG/20 ML AMP IV ONE; +ceFAZolin 2 GM PREMIX 50 ML ONE
--- NOTE | 2018-02-06 08:17 | MP ---
cc: George Kemp MD DATE OF OPERATION: 02/06/2018 PREOPERATIVE DIAGNOSIS: High grade dysplasia. POSTOPERATIVE DIAGNOSIS: High grade dysplasia. OPERATION: A 2 staged loop electrical excision procedure. SURGEON: Dr. George Kemp. ANESTHESIA: General. ESTIMATED BLOOD LOSS: Minimal. COMPLICATIONS: None. FINDINGS: None. ELEVATOR DISPATCHER: None. SPECIMEN: Transformation zone and endocervical canal. PROCEDURE: The patient was prepped and draped in the dorsal lithotomy position. A weighted speculum was placed in the posterior vaginal vault. Anterior lip of the cervix was grasped with a single-tooth tenaculum. A large sized wire loop was used to excise the transformation zone. Then, a medium size wire loop was used to excise a small portion in the endocervical canal. Then the ball electrode was used for hemostasis and after good hemostasis was noted, tenaculum and speculum were removed. The patient returned to recovery room in stable condition. George Kemp MD JSG/TL , 07:53 AM , 08:16 AM
== END | disposition home or self-care (01) ==
LOC: ESDC 06:20
PROVIDERS: ATTEND Obstetrics & Gynecology
DX: R87.613 High grade squamous intraepithelial lesion on cytologic smear of cervix (HGSIL) (principal)
CPT/HCPCS: 00940; 57522; 88307; J0690; J1885; J2250; J2405; J3010; J7120; 88305